=== PATIENT | female | born 1980 | race Caucasian/White ===

== ENCOUNTER 2021-02-14 21:52 | Emergency (ER) | payer MEDICAID ==
[~2021-02-14] VITALS: Ht 162.6 cm; Wt 98.6 kg
[~2021-02-14 21:52] MED LIST: RANI-366 PO; SUCR1ORA2 PO
[2021-02-14] MEDS ORDERED: naphazoline/pheniramine eye 1 DROP BOTTLE LEFTEYE PRN (23:25)
[2021-02-14 23:53] VITALS: BP 124/71
== END 2021-02-14 23:54 | disposition home or self-care (01) ==
LOC: ER 21:52
DX: H10.12 Acute atopic conjunctivitis, left eye (principal); H53.8 Other visual disturbances; Z79.899 Other long term (current) drug therapy
CPT/HCPCS: 82948; 99282

== ENCOUNTER 2024-08-20 19:33 | Emergency (ER) | payer MEDICAID ==
[~2024-08-20] VITALS: Ht 162.6 cm; Wt 108.0 kg
[2024-08-20 19:56] VITALS: BP 126/83; PULSE 68; O2SAT 99
[2024-08-20 21:37] VITALS: RESP 16; TEMP 97.9
== END 2024-08-20 21:38 | disposition home or self-care (01) ==
LOC: ER 19:33
DX: S50.11XA Contusion of right forearm, initial encounter (principal); Z79.899 Other long term (current) drug therapy; X58.XXXA Exposure to other specified factors, initial encounter; Y93.89 Activity, other specified; Y92.89 Other specified places as the place of occurrence of the external cause; Y99.8 Other external cause status
CPT/HCPCS: 73080; 73090; 73110; 73130; 99284